=== PATIENT | female | born 1945 | race Caucasian/White ===

== ENCOUNTER 2017-01-11 05:47 | Inpatient (IN) | payer OTHER ==
[2017-01-07 17:23] VITALS: BMI 38.0
[2017-01-11] VITALS (35 sets, daily range): BP systolic 105–172; BP diastolic 55–89; PULSE 52–102; RESP 17–42; Ht 160 cm; Wt 97.0 kg
[~2017-01-11] VITALS: Ht 160 cm; Wt 97.0 kg
[~2017-01-11 05:47] MED LIST: ATEN50TA; ATOR20TA17; COLE625T2; DIAZ10TA4; DULO60CA6; ESOM40CA; HYDR-2059; HYDR4TAB; LAS20; LIDOCAINE; PANT40TA3; SUCR1TAB; SYN2; TIZA4TAB; [UNRECOGNIZED DRUG - OTHER]
[2017-01-11] MEDS ORDERED: THROMBIN 5000 UNIT VIAL ONE (06:37)
[2017-01-11] MEDS ORDERED: METHYLENE BLUE 1% 10 ML INJ ONE (06:38)
[2017-01-11] MEDS ORDERED: VASOPRESSIN 20 UNITS INJ ONE (06:38)
[2017-01-11] MEDS ORDERED: metroNIDAZOLE 500 MG/NS (PMX) 100 ML IVPB ONE (07:00)
[2017-01-11] MEDS ORDERED: CEFAZOLIN 1 GM INJ ONE (07:00)
[2017-01-11] MEDS ORDERED: D5-NS + KCL 20 MEQ 1,000 ML IV SCH (07:00)
[2017-01-11] MEDS ORDERED: ONDANSETRON 4 MG INJ ONE (07:12)
[2017-01-11] MEDS ORDERED: SUCCINYLCHOLINE CHLORIDE 100 MG/5 ML SYG IV ONE (07:12)
[2017-01-11] MEDS ORDERED: ROCURONIUM 50 MG INJ ONE (07:12)
[2017-01-11] MEDS ORDERED: FENTAnyl 50 MCG/ML VIAL ONE (07:12)
[2017-01-11] MEDS ORDERED: PROPOFOL 20 ML ONE (07:12)
[2017-01-11] MEDS ORDERED: METOCLOPRAMIDE 10 MG INJ ONE (07:13)
[2017-01-11] MEDS ORDERED: METO2.5T12 PO (07:49)
[2017-01-11] MEDS ORDERED: FAMO40TA52 PO (07:49)
--- NOTE | 2017-01-11 08:02 | HP ---
Date/Time of Note Date/Time of Note DATE: 01/11/17 TIME: 08:01 Assessment/Plan VTE Prophylaxis VTE Prophylaxis Intervention: SCD's HPI/ROS Admit Date/Time Admit Date/Time January 11, 2017 at 05:47 Hx of Present Illness Socrates Romo M.D. [facility] History and Physical Examination Loni Cristobal Date:January 07, 2017 :1945 Age: 71 Physicians: Machine [employer] Account Service Associate Oncologist Referring MD: Carley Hampton History of the Present Illness: A 71 year old female with a gradually increasing pelvic masses. The masses is complex and 7 cm and 10 cm and associated with pain. CA-125 is 11. Medical history/ROS: all other systems unremarkable. Surgical history: GB, CODI/?BSO, Appy, bladder Medications: Flu yes, 2016, Pneumococcal yes, 2016 Allergies: 12/23/16 Iodine 12/23/16 Penicillins Family Hx: non-contributary Social HX: non-contributary ROS: as above Colonoscopy: yes, 2010 Physical Examination Vitals (12/23/2016): Weight 220, Height 63, BP 140/80, BMI 39.0. General: Alert. HEENT: Pupils are equal, round, reactive to light and accommodation. Neck: Supple with no masses of lymphadenopathy. Breast: Deferred due to recent examination and responsibility of primary care physician. Chest: Clear to auscultation Heart: Normal rhythm with no murmur. Abdomen: Mildly tender with lower abd fullness, no ascites nor organomeglay. Pelvic exam: cul-de-sac cyst, no cul-de-sac nodularity noted Rectal: confirmatory with pelvic exam Ext Bilaterat edema (doppler neg0. Neurological: Grossly intact Assessment: Pelvic-abdominal mass Plan: laparoscopy,, possible BSO, possible removal of mesenteric cyst, possible open. All risks and benefits of this procedure have been discussed in detail with the patient, as well as alternative treatment strategies and their implications. The patient is aware that there is some possibility of a blood transfusion and its associated risks and benefits. She wishes to proceed and gives her informed consent. Socrates Romo M.D. PMH/Family/Social Social History Smoking Status: Never smoker Exam/Review of Systems Vital Signs Vitals Vital Signs Date Time Temp Pulse Resp B/P Pulse Ox O2 Delivery O2 Flow Rate FiO2 01/11/17 07:21 98.9 78 22 149/88 96 Room Air Medications Medications Current Medications Potassium Chloride/Dextrose/ Sod Cl (D5-NS + KCl 20 Meq) 1,000 ml @ 100 mls/hr Q10H IV ; Start 01/11/17 at 07:00 SOCRATES ROMO MD January 11, 2017 08:02
--- NOTE | 2017-01-11 08:02 | HPN ---
Date/Time of Note Date/Time of Note DATE: 01/11/17 TIME: 08:02 Interval H&P Admission Note Pt. seen H&P reviewed: No system changes MORIAH ROMO MD January 11, 2017 08:02
[2017-01-11] MEDS ORDERED: hydrALAzine 20 MG INJ IV PRN (09:00)
[2017-01-11] MEDS ORDERED: MEPERIDINE 25 MG INJ IV PRN (09:00)
[2017-01-11] MEDS ORDERED: FENTAnyl 50 MCG/ML VIAL IV PRN ×2 (09:00)
[2017-01-11] MEDS ORDERED: ONDANSETRON 4 MG INJ IV PRN (09:00)
[2017-01-11] MEDS ORDERED: LABETALOL HCL 20MG INJ IV PRN (09:00)
[2017-01-11] MEDS ORDERED: HYDROmorphONE (0.2 MG/ML) 10ML SYG IV PRN ×3 (09:00)
[2017-01-11] MEDS ORDERED: NEOSTIGMINE 3 MG/3 ML SYRINGE ONE (11:04)
[2017-01-11] MEDS ORDERED: ATROPINE 1 MG/10 ML SYRINGE ONE (11:04)
[2017-01-11] MEDS ORDERED: NEOMYC/POLYMYX/BACIT 30 GM OINT ONE (11:29)
[2017-01-11] MEDS ORDERED: HYDROCODONE/APAP (5/325) TAB PO PRN (12:00)
[2017-01-11] MEDS ORDERED: CEFAZOLIN 1 GM in SOD CHLORIDE 0.9% 100 ML IVPB SCH (12:00)
[2017-01-11 12:10] LABS: ADD SCAN DIFF NO
[2017-01-11 12:13] LABS: BASOPHILS % 0.5 % (0.0-2.0); EOSINOPHILS # 0.2 10^3/ul (0.0-0.5); EOSINOPHILS % 2.3 % (0.0-7.0); HEMATOCRIT 46.5 % (37.0-47.0); HEMOGLOBIN 15.5 g/dl (12.0-16.0); LYMPHOCYTES # 2.4 10^3/ul (0.8-2.9); LYMPHOCYTES % 31.4 % (15.0-51.0); MEAN CORPUSCULAR HEMOGLOBIN 30.3 pg (29.0-33.0); MEAN CORPUSCULAR HGB CONC 33.3 g/dl (32.0-37.0); MEAN CORPUSCULAR VOLUME 90.8 fl (82.0-101.0); MEAN PLATELET VOLUME 9.8 fl (7.4-10.4); MONOCYTE # 0.7 10^3/ul (0.3-0.9); MONOCYTES % 8.9 % (0.0-11.0); NEUTROPHIL # 4.3 10^3/ul (1.6-7.5); NEUTROPHILS % 56.6 % (39.0-77.0); PLATELET COUNT 139 10^3/UL (140-415); RED BLOOD COUNT 5.12 10^6/ul (4.20-5.40); RED CELL DISTRIBUTION WIDTH 12.9 % (11.5-14.5); WHITE BLOOD COUNT 7.6 10^3/ul (4.8-10.8)
[2017-01-11] MEDS: CEFAZOLIN 1 GM/50 ML (PMX) 50 ML IVPB SCH ×2 (12:30→20:55)
[2017-01-11 12:35] LABS: ALBUMIN 3.8 g/dl (3.3-4.9); ALBUMIN/GLOBULIN RATIO 1.11; BILIRUBIN,INDIRECT 0.4 mg/dl (0-1.1); BILIRUBIN,TOTAL 0.4 mg/dl (0.2-1.3); TOTAL PROTEIN 7.2 g/dl (6.1-8.1)
[2017-01-11 12:36] LABS: CALCIUM 9.3 mg/dl (8.4-10.2); CREATININE 0.59 mg/dl (0.44-1.00); POTASSIUM 3.9 mmol/L (3.5-5.1)
[2017-01-11] MEDS: POTASSIUM CHLORIDE 20 MEQ in LACTATED RINGER'S 990 ML IV SCH (14:45)
[2017-01-11] MEDS: HYDROmorphONE 1 MG/ML SYG IV PRN (18:27)
[2017-01-11] MEDS: FAMOTIDINE 20 MG INJ IV SCH (22:19)
[2017-01-11] MEDS: KETOROLAC 15 MG INJ IV PRN (22:27)
[2017-01-12 00:34] VITALS: BP 133/71; RESP 18
[2017-01-12] MEDS: HYDROmorphONE 1 MG/ML SYG IV PRN ×3 (00:41→18:15)
[2017-01-12] MEDS: POTASSIUM CHLORIDE 20 MEQ in LACTATED RINGER'S 990 ML IV SCH ×3 (00:41→20:40)
[2017-01-12] MEDS: CEFAZOLIN 1 GM/50 ML (PMX) 50 ML IVPB SCH (04:15)
[2017-01-12 04:21] VITALS: BP 139/64; PULSE 84; RESP 16
[2017-01-12 04:57] LABS: ADD SCAN DIFF NO
[2017-01-12 05:05] LABS: BASOPHILS % 0.5 % (0.0-2.0); EOSINOPHILS # 0.1 10^3/ul (0.0-0.5); EOSINOPHILS % 1.6 % (0.0-7.0); HEMATOCRIT 40.8 % (37.0-47.0); HEMOGLOBIN 13.3 g/dl (12.0-16.0); LYMPHOCYTES # 2.7 10^3/ul (0.8-2.9); LYMPHOCYTES % 31.4 % (15.0-51.0); MEAN CORPUSCULAR HEMOGLOBIN 30.2 pg (29.0-33.0); MEAN CORPUSCULAR HGB CONC 32.6 g/dl (32.0-37.0); MEAN CORPUSCULAR VOLUME 92.5 fl (82.0-101.0); MEAN PLATELET VOLUME 10.3 fl (7.4-10.4); MONOCYTE # 1.1 10^3/ul (0.3-0.9); NEUTROPHIL # 4.5 10^3/ul (1.6-7.5); NEUTROPHILS % 53.3 % (39.0-77.0); PLATELET COUNT 147 10^3/UL (140-415); RED BLOOD COUNT 4.41 10^6/ul (4.20-5.40); RED CELL DISTRIBUTION WIDTH 13.3 % (11.5-14.5); WHITE BLOOD COUNT 8.5 10^3/ul (4.8-10.8)
[2017-01-12 05:38] LABS: INR 1.02; PROTIME 13.4 Sec (12.2-14.2)
[2017-01-12 05:52] LABS: ALBUMIN 3.7 g/dl (3.3-4.9)
[2017-01-12 05:53] LABS: POTASSIUM 4.1 mmol/L (3.5-5.1)
[2017-01-12 05:55] LABS: ALBUMIN/GLOBULIN RATIO 1.54; BILIRUBIN,INDIRECT 0.5 mg/dl (0-1.1); BILIRUBIN,TOTAL 0.5 mg/dl (0.2-1.3); CREATININE 0.75 mg/dl (0.44-1.00); TOTAL PROTEIN 6.1 g/dl (6.1-8.1)
[2017-01-12 05:56] LABS: CALCIUM 8.8 mg/dl (8.4-10.2); MAGNESIUM 1.8 mg/dl (1.7-2.5)
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
[2017-01-12 08:00] VITALS: BP 183/78; RESP 18
[2017-01-12] MEDS: DULOXETINE 30 MG CAP DR PO SCH (08:30)
[2017-01-12] MEDS: ATENOLOL 50 MG TAB PO SCH (08:31)
[2017-01-12] MEDS: FAMOTIDINE 20 MG INJ IV SCH ×2 (08:31→20:38)
[2017-01-12] MEDS: ATORVASTATIN 20 MG TAB PO SCH (08:31)
[2017-01-12] MEDS ORDERED: METOLAZONE 2.5 MG TAB PO SCH (09:00)
[2017-01-12] MEDS ORDERED: PANTOPRAZOLE (EC) 40 MG TAB PO SCH (09:00)
[2017-01-12] MEDS: LEVOTHYROXINE 100 MCG TAB PO SCH (09:14)
[2017-01-12 10:00] VITALS: BP 146/67
--- NOTE | 2017-01-12 17:23 | PN ---
Date/Time of Note Date/Time of Note DATE: 01/12/17 TIME: 17:17 Assessment/Plan VTE Prophylaxis VTE Prophylaxis Intervention: SCD's Lines/Catheters IV Catheter Type (from Nrs): Peripheral IV Urinary Cath still in place: No Assessment/Plan Chief Complaint/Hosp Course Patient's complains of postoperative pain, denies nausea vomiting, tolerates diet well. Assessment and plan: - Pelvic mass, status post laparoscopic bilateral salpingo-oophorectomy. Continue [place] and Dilaudid for pain. Follow-up surgical recommendation. - Hypothyroidism. Continue Synthroid. - Hypertension. Continue atenolol. - Depression. Continue Cymbalta. - Chronic pain syndrome. With history of spinal cord stimulator and morphine pump. - Obesity with BMI 37.9 - Status post cholecystectomy Patient's condition and plan of care discussed with patient and patient's at the bedside. Further recommendations based on clinical course. Plan of care discussed with Dr. Grimm. Problems: Exam/Review of Systems Vital Signs Vitals Vital Signs Date Time Temp Pulse Resp B/P Pulse Ox O2 Delivery O2 Flow Rate FiO2 01/12/17 10:00 146/67 01/12/17 08:00 Nasal Cannula 3.0 01/12/17 08:00 99.7 95 18 94 Intake and Output 01/11/17 01/11/17 01/12/17 15:00 23:00 07:00 Intake Total 1000 ml 550 ml 1200 ml Output Total 430 ml 700 ml Balance 570 ml 550 ml 500 ml Exam Constitutional: alert Psych: no complaints Head: normocephalic Respiratory: clear to auscultation Cardiovascular: nl pulses Gastrointestinal: non-tender, soft Genitourinary - Female: other (Status post surgery) Extremities: normal pulses Results Result Diagram: 01/12/17 0425 01/12/17 0412 Results 24 hrs Laboratory Tests Test 01/12/17 04:12 01/12/17 04:25 01/12/17 10:19 Sodium Level 141 Potassium Level 4.1 Chloride Level 106 Carbon Dioxide Level 34 H Anion Gap 5 L Blood Urea Nitrogen 7 Creatinine 0.75 Glucose Level 107 # Calcium Level 8.8 Magnesium Level 1.8 Total Bilirubin 0.5 Direct Bilirubin 0.00 Indirect Bilirubin 0.5 Aspartate Amino Transf (AST/SGOT) 36 Alanine Aminotransferase (ALT/SGPT) 44 Alkaline Phosphatase 89 Total Protein 6.1 # Albumin 3.7 Globulin 2.40 Albumin/Globulin Ratio 1.54 White Blood Count 8.5 Red Blood Count 4.41 Hemoglobin 13.3 Hematocrit 40.8 Mean Corpuscular Volume 92.5 Mean Corpuscular Hemoglobin 30.2 Mean Corpuscular Hemoglobin Concent 32.6 Red Cell Distribution Width 13.3 Platelet Count 147 Mean Platelet Volume 10.3 Neutrophils % 53.3 Lymphocytes % 31.4 Monocytes % 13.0 H Eosinophils % 1.6 Basophils % 0.5 Nucleated Red Blood Cells % 0.0 Neutrophils # 4.5 Lymphocytes # 2.7 Monocytes # 1.1 H Eosinophils # 0.1 Basophils # 0.0 Nucleated Red Blood Cells # 0.0 Prothrombin Time 13.4 Prothrombin Time Ratio 1.0 INR International Normalized Ratio 1.02 Bedside Glucose 190 Medications Medications Current Medications Hydromorphone HCl (Dilaudid) 0.5 mg Q6H PRN IV PAIN LEVEL 6-10 Last administered on 01/12/17 08:32; Admin Dose 0.5 MG; Start 01/11/17 at 12:00 Acetaminophen/ Hydrocodone Bitart ([place] (5/325)) 1 tab Q6H PRN PO PAIN LEVEL 6 -10 Last administered on 01/12/17 10:20; Admin Dose 1 TAB; Start 01/11/17 at 12 :00 Ketorolac Tromethamine (Toradol) 15 mg Q6H PRN IV PAIN Last administered on 22:27; Admin Dose 15 MG; Start 01/11/17 at 12:00; Stop 01/14/17 at 11:59 Famotidine 20 mg 20 mg Q12 IV Last administered on 01/12/17 08:31; Admin Dose 20 MG; Start 01/11/17 at 21:00 Potassium Chloride/Lactated Ringer's (KCl/Lr) 1,000 ml @ 100 mls/hr Q10H IV Last administered on 01/12/17 12:18; Admin Dose 100 MLS/HR; Start 01/11/17 at 13:30 Atenolol (Tenormin) 50 mg QAM PO Last administered on 01/12/17 08:31; Admin Dose 50 MG; Start 01/12/17 at 09:00 Atorvastatin Calcium (Lipitor) 20 mg QAM PO Last administered on 01/12/17 08: 31; Admin Dose 20 MG; Start 01/12/17 at 09:00 Duloxetine HCl (Cymbalta) 60 mg QAM PO Last administered on 01/12/17 08:30; Admin Dose 60 MG; Start 01/12/17 at 09:00 Levothyroxine Sodium (Synthroid) 200 mcg QAM PO Last administered on 01/12/17 09:14; Admin Dose 200 MCG; Start 01/12/17 at 09:00 BOBO WESLEY January 12, 2017 17:23
[2017-01-12] MEDS: KETOROLAC 15 MG INJ IV PRN (19:43)
[2017-01-12 20:20] VITALS: BP 136/63; PULSE 77
[2017-01-12 20:38] VITALS: BP 171/76; RESP 20
[2017-01-12] MEDS ORDERED: HYDROmorphONE 1 MG/ML SYG IV PRN (21:00)
--- NOTE | 2017-01-12 22:07 | OPR ---
Date/Time of Note Date/Time of Note DATE: 01/12/17 TIME: 22:06 Operative Report Free Text/Dictation 3 OPERATIVE REPORT [facility] Date: 01/11/17 Preoperative Diagnosis: Bilateral adnexal masses Postoperative Diagnosis: Procedures: 1- Bilateral salpingoophorectomy 2- Bilateral ureteral dissection with repositioning Surgeon: Dr. Abreu Interventional Radiology Tech: KANDACE Marie Anesthesia: General Indications for Procedure: The patient is an 71- year old female with a 7-10 cm multi-cystic right and left adnexal masses and pain with tumor markers slightly of concern for possible ovarian cancer. After all options were presented with risks and benefits she agreed to a laparoscopy with a bilateral salpingoophorectomy and ureteral dissection with repositioning and staging if needed. Findings and Summary After laparoscopic placement extensive enterolysis was required and a right adnexal cyst and left adnexal vs retroperitoneal cyst was noted requiring additional enterolysis. Due to adherence of both masses to the sidewalls bilateral and the left side being retroperitoneal, a retroperitoneal exploration and ureteral dissection with repositioning was needed, after which the masses were removed and confirmed to be benign. The laparoscopic RSO was completed without incident and probable LSO or removal of retroperitoneal left cyst or ovarian remnant removed as well. Procedure: [facility] After being prepped and draped in the usual manner an EEA sizer and pneumo- occluder was inserted vaginally. Subsequently, we placed a 5 mm trocar cephlad to the umbilicus due to the size of the masses and incision without incident and insufflated to 15 mm Hg, after which we and placed two 5 millimeter trocars laterally and considerable omental adhesions were lysed without incident with sharp dissection and the [place] or Omni after which the 12 millimeter trocar placed suprapubically. At this time any pelvic adhesions were lysed with sharp dissection. Subsequently we explored and noted extensive pelvic and omental adhesions requiring enterolysis with sharp dissection required and Omni and a right adnexal cyst and left adnexal vs retroperitoneal cyst was noted requiring additional enterolysis., both densely adherent to the sidewalls , obscuring the retroperitoneal anatomy precluding access to the ureters to visualize. Hence, on the right side of the pathology, the apparent remnant of round ligament was transected with a Gyrus bipolar cutting forceps and the retroperitoneum opened parallel to the infundibulo-pelvic (IP) ligament with the Gyrus bipolar cutting forceps and Omni. The ureter was identified, and noted to be densely adherent to the pathology and significantly distorted anatomically, hence requiring a ureteral dissection/repositioning as a separate procedure. The ureter was dissected away and repositioned with great care using the endo-dissector, with both the Omni and the Gyrus bipolar cutting forceps, after which the ureter was repositioned laterally. This process was carried out throughout the ureteral length in the pelvis and it peristalsed normally subsequently to being repositioned. At this time the mass was dissected from the adjacent colonic mesentery and the IP ligament was better isolated. Subsequently, the IP ligament was cauterized and transected with a Gyrus bipolar cutting forceps. The adnexia with adherent peritoneum was mobilized with a Omni while visualizing the ureter. The adnexia required considerable mobilization from the colon and colonic mesentery with sharp dissection and the Omni for tissue not adjacent to the serosa. Subsequently the right adnexia with large mass was dissected from the bladder with the Omni and the andexia was fully by Name: [facility] transaction of residual triple pedicel the Omni and Gyrus bipolar cutting forceps . The adnexia was sent to pathology and confirmed to be and benign. Subsequently, the contralateral adnexia was addressed in the same manner. The remnant of round ligament was cauterized and transected with a Gyrus bipolar cutting forceps and the retroperitoneum opened parallel to the mass and sigmoid colon to note a remnant of infundibulo-pelvic (IP) ligament with the Gyrus bipolar cutting forceps as done on the other side. The ureter was identified, and noted to be also be adherent to the broad ligament and mass requiring a ureteral dissection/repositioning as a separate procedure. The ureter was dissected away and repositioned with care using the endo-dissector, with both the Omni and the endo-dissector bluntly, after which the ureter was repositioned laterally. The Omni and the Gyrus bipolar cutting forceps were used to address any small bleeding areas with the ureter visualized. This process was carried out throughout the ureteral length in the pelvis and it peristalsed normally once repositioned. Subsequently, the IP ligament was transected with a Gyrus bipolar cutting forceps with the ureter visualized. The adnexia with adherent peritoneum was mobilized with a Omni while visualizing the ureter. Hence the aforementioned cystic mass was mobilized from the retroperitoneum and adjacent sigmoid colon as well mesentery and cul -de-sac with sharp dissection and the Omni and removed en-bloc with adjacent oozing addressed with the argon adamson floorleader at low wattage. The mas was sent to pathology and confirmed to be benign. After irrigating and assuring hemostasis the 12 millimeter trocar was removed and the fascia was closed with 0 -vicryl using an endo-close devise. The gas was removed and the skin of all sites then closed with 5-0 Monocryl suture. The EBL was 100cc and the patient tolerated the procedure well and left the OR in good condition. Moriah Abreu M.D. MORIAH ABREU MD January 12, 2017 22:07
--- NOTE | 2017-01-12 22:11 | PN ---
Date/Time of Note Date/Time of Note DATE: 01/12/17 TIME: 22:07 Assessment/Plan VTE Prophylaxis VTE Prophylaxis Intervention: SCD's Lines/Catheters IV Catheter Type (from Nrsg): Saline Lock Urinary Cath still in place: No Assessment/Plan Chief Complaint/Hosp Course pelvic mass x 2, pain Problems: Assessment/Plan A- doing well but chronic pain P- adv diet, discuss with IM Subjective 24 Hr Interval Summary Free Text/Dictation Ongoing general pain and rt pain, but nisreen liq and + flatus. Exam/Review of Systems Vital Signs Vitals Vital Signs Date Time Temp Pulse Resp B/P Pulse Ox O2 Delivery O2 Flow Rate FiO2 01/12/17 21:00 Nasal Cannula 2.0 01/12/17 20:38 98.9 82 20 171/76 94 Intake and Output 01/11/17 01/11/17 01/12/17 15:00 23:00 07:00 Intake Total 1000 ml 550 ml 1200 ml Output Total 430 ml 700 ml Balance 570 ml 550 ml 500 ml Exam Resp-clear but on O2 CVS- NSR Abd-NT clean and soft Ext- nt baseline edema Results Result Diagram: 01/12/17 0425 01/12/17 0412 Results 24 hrs Laboratory Tests Test 01/12/17 04:12 01/12/17 04:25 01/12/17 10:19 Sodium Level 141 Potassium Level 4.1 Chloride Level 106 Carbon Dioxide Level 34 H Anion Gap 5 L Blood Urea Nitrogen 7 Creatinine 0.75 Glucose Level 107 # Calcium Level 8.8 Magnesium Level 1.8 Total Bilirubin 0.5 Direct Bilirubin 0.00 Indirect Bilirubin 0.5 Aspartate Amino Transf (AST/SGOT) 36 Alanine Aminotransferase (ALT/SGPT) 44 Alkaline Phosphatase 89 Total Protein 6.1 # Albumin 3.7 Globulin 2.40 Albumin/Globulin Ratio 1.54 White Blood Count 8.5 Red Blood Count 4.41 Hemoglobin 13.3 Hematocrit 40.8 Mean Corpuscular Volume 92.5 Mean Corpuscular Hemoglobin 30.2 Mean Corpuscular Hemoglobin Concent 32.6 Red Cell Distribution Width 13.3 Platelet Count 147 Mean Platelet Volume 10.3 Neutrophils % 53.3 Lymphocytes % 31.4 Monocytes % 13.0 H Eosinophils % 1.6 Basophils % 0.5 Nucleated Red Blood Cells % 0.0 Neutrophils # 4.5 Lymphocytes # 2.7 Monocytes # 1.1 H Eosinophils # 0.1 Basophils # 0.0 Nucleated Red Blood Cells # 0.0 Prothrombin Time 13.4 Prothrombin Time Ratio 1.0 INR International Normalized Ratio 1.02 Bedside Glucose 190 Medications Medications Current Medications Ketorolac Tromethamine (Toradol) 15 mg Q6H PRN IV PAIN Last administered on 19:43; Admin Dose 15 MG; Start 01/11/17 at 12:00; Stop 01/14/17 at 11:59 Famotidine 20 mg 20 mg Q12 IV Last administered on 01/12/17 20:38; Admin Dose 20 MG; Start 01/11/17 at 21:00 Potassium Chloride/Lactated Ringer's (KCl/Lr) 1,000 ml @ 70 mls/hr [id number] IV Last administered on 01/12/17 20:40; Admin Dose 70 MLS/HR; Start 01/11/17 at 13 :30 Atenolol (Tenormin) 50 mg QAM PO Last administered on 01/12/17 08:31; Admin Dose 50 MG; Start 01/12/17 at 09:00 Atorvastatin Calcium (Lipitor) 20 mg QAM PO Last administered on 01/12/17 08: 31; Admin Dose 20 MG; Start 01/12/17 at 09:00 Duloxetine HCl (Cymbalta) 60 mg QAM PO Last administered on 01/12/17 08:30; Admin Dose 60 MG; Start 01/12/17 at 09:00 Levothyroxine Sodium (Synthroid) 200 mcg QAM PO Last administered on 01/12/17 09:14; Admin Dose 200 MCG; Start 01/12/17 at 09:00 Acetaminophen/ Hydrocodone Bitart ([place] (5/325)) 1 tab Q4HWA PRN PO PAIN LEVEL 6-10; Start 01/12/17 at 21:00 Hydromorphone HCl (Dilaudid) 0.5 mg Q3H PRN IV PAIN LEVEL 6-10; Start 01/12/17 at 21:00 MORIAH ROMO MD January 12, 2017 22:11
[2017-01-13 05:05] LABS: ADD SCAN DIFF NO
[2017-01-13] MEDS: KETOROLAC 15 MG INJ IV PRN ×3 (05:05→18:47)
[2017-01-13 05:15] LABS: BASOPHILS % 0.4 % (0.0-2.0); EOSINOPHILS # 0.2 10^3/ul (0.0-0.5); EOSINOPHILS % 3.4 % (0.0-7.0); HEMATOCRIT 38.7 % (37.0-47.0); HEMOGLOBIN 12.8 g/dl (12.0-16.0); LYMPHOCYTES # 2.1 10^3/ul (0.8-2.9); LYMPHOCYTES % 30.1 % (15.0-51.0); MEAN CORPUSCULAR HEMOGLOBIN 30.1 pg (29.0-33.0); MEAN CORPUSCULAR HGB CONC 33.1 g/dl (32.0-37.0); MEAN CORPUSCULAR VOLUME 91.1 fl (82.0-101.0); MEAN PLATELET VOLUME 10.4 fl (7.4-10.4); MONOCYTE # 0.8 10^3/ul (0.3-0.9); MONOCYTES % 11.7 % (0.0-11.0); NEUTROPHIL # 3.8 10^3/ul (1.6-7.5); NEUTROPHILS % 54.1 % (39.0-77.0); PLATELET COUNT 119 10^3/UL (140-415); RED BLOOD COUNT 4.25 10^6/ul (4.20-5.40); RED CELL DISTRIBUTION WIDTH 12.8 % (11.5-14.5); WHITE BLOOD COUNT 7.1 10^3/ul (4.8-10.8)
[2017-01-13 07:35] VITALS: BP 127/58; RESP 18
[2017-01-13 07:39] LABS: PLATELET ESTIMATE PLT APPEAR DECREASED
[2017-01-13] MEDS: ATENOLOL 50 MG TAB PO SCH (10:43)
[2017-01-13] MEDS: ATORVASTATIN 20 MG TAB PO SCH (10:43)
[2017-01-13] MEDS: DULOXETINE 30 MG CAP DR PO SCH (10:44)
[2017-01-13] MEDS: FAMOTIDINE 20 MG INJ IV SCH (10:44)
[2017-01-13 10:45] LABS: CREATININE 0.55 mg/dl (0.44-1.00); POTASSIUM 4.4 mmol/L (3.5-5.1)
[2017-01-13] MEDS: LEVOTHYROXINE 100 MCG TAB PO SCH (10:46)
[2017-01-13] MEDS: POTASSIUM CHLORIDE 20 MEQ in LACTATED RINGER'S 990 ML IV SCH (10:46)
[2017-01-13] MEDS: HYDROCODONE/APAP (5/325) TAB PO PRN ×2 (12:00→15:56)
--- NOTE | 2017-01-13 16:46 | PN ---
Date/Time of Note Date/Time of Note DATE: 01/13/17 TIME: 16:46 Assessment/Plan VTE Prophylaxis VTE Prophylaxis Intervention: other Lines/Catheters IV Catheter Type (from Nrs): Peripheral IV Urinary Cath still in place: No Assessment/Plan Assessment/Plan - Pelvic mass, status post laparoscopic bilateral salpingo-oophorectomy. Continue [place] and Dilaudid for pain. Follow-up surgical recommendation. - Hypothyroidism. Continue Synthroid. - Hypertension. Continue atenolol. - Depression. Continue Cymbalta. - Chronic pain syndrome. With history of spinal cord stimulator and morphine pump. - Obesity with BMI 37.9 - Status post cholecystectomy Patient's condition and plan of care discussed with patient and patient's at the bedside. Further recommendations based on clinical course. Plan of care discussed with Dr. Grimm. Exam/Review of Systems Vital Signs Vitals Vital Signs Date Time Temp Pulse Resp B/P Pulse Ox O2 Delivery O2 Flow Rate FiO2 01/13/17 08:00 Nasal Cannula 2.0 01/13/17 07:35 98.2 86 18 127/58 94 Intake and Output 01/12/17 01/12/17 01/13/17 15:00 23:00 07:00 Intake Total 600 ml 1770 ml 1270 ml Output Total 1000 ml 1350 ml Balance 600 ml 770 ml -80 ml Exam Constitutional: alert, obese, oriented, well developed ENMT: nl external ears & nose Neck: non-tender Respiratory: clear to auscultation, normal air movement Cardiovascular: nl pulses, regular rate and rhythm Gastrointestinal: non-tender, soft Neurological: nl mental status, nl speech Lymph: other Results Result Diagram: 01/13/17 0453 01/13/17 0940 Results 24 hrs Laboratory Tests Test 01/13/17 04:53 01/13/17 09:40 White Blood Count 7.1 Red Blood Count 4.25 Hemoglobin 12.8 Hematocrit 38.7 Mean Corpuscular Volume 91.1 Mean Corpuscular Hemoglobin 30.1 Mean Corpuscular Hemoglobin Concent 33.1 Red Cell Distribution Width 12.8 Platelet Count 119 L Mean Platelet Volume 10.4 Neutrophils % 54.1 Lymphocytes % 30.1 Monocytes % 11.7 H Eosinophils % 3.4 Basophils % 0.4 Nucleated Red Blood Cells % 0.0 Neutrophils # 3.8 Lymphocytes # 2.1 Monocytes # 0.8 Eosinophils # 0.2 Basophils # 0.0 Nucleated Red Blood Cells # 0.0 Platelet Estimate PLT APPEAR DECREASED Sodium Level 140 Potassium Level 4.4 Chloride Level 107 Carbon Dioxide Level 33 H Anion Gap 4 L Blood Urea Nitrogen 6 L Creatinine 0.55 Glucose Level 130 Calcium Level 9.0 Medications Medications Current Medications Ketorolac Tromethamine (Toradol) 15 mg Q6H PRN IV PAIN Last administered on 01/13 05:05; Admin Dose 15 MG; Start 01/11/17 at 12:00; Stop 01/14/17 at 11:59 Famotidine 20 mg 20 mg Q12 IV Last administered on 01/13/17 10:44; Admin Dose 20 MG; Start 01/11/17 at 21:00 Potassium Chloride/Lactated Ringer's (KCl/Lr) 1,000 ml @ 70 mls/hr [id number] IV Last administered on 01/13/17 10:46; Admin Dose 70 MLS/HR; Start 01/11/17 at 13: 30 Atenolol (Tenormin) 50 mg QAM PO Last administered on 01/13/17 10:43; Admin Dose 50 MG; Start 01/12/17 at 09:00 Atorvastatin Calcium (Lipitor) 20 mg QAM PO Last administered on 01/13/17 10:43 ; Admin Dose 20 MG; Start 01/12/17 at 09:00 Duloxetine HCl (Cymbalta) 60 mg QAM PO Last administered on 01/13/17 10:44; Admin Dose 60 MG; Start 01/12/17 at 09:00 Levothyroxine Sodium (Synthroid) 200 mcg QAM PO Last administered on 01/13/17 10:46; Admin Dose 200 MCG; Start 01/12/17 at 09:00 Acetaminophen/ Hydrocodone Bitart ([place] (5/325)) 1 tab Q4HWA PRN PO PAIN LEVEL 6-10 Last administered on 01/13/17 15:56; Admin Dose 1 TAB; Start at 21:00 Hydromorphone HCl (Dilaudid) 0.5 mg Q3H PRN IV PAIN LEVEL 6-10 Last administered on 01/13/17 10:46; Admin Dose 0.5 MG; Start 01/12/17 at 21:00 MARIAM GAYTAN Jan 13, 2017 16:46
[2017-01-13] MEDS ORDERED: MORPHINE XX SCH (18:00)
--- NOTE | 2017-01-13 18:57 | PDOCDIS ---
Discharge Instructions CONDITION Patient Condition: Stable HOME CARE INSTRUCTIONS: Diet Instructions: Low Fat /CholesterolSpecial Diet: N/A ACTIVITY: Activity Restrictions: Slowly Increase Activity Rest between Activity Avoid heavy lifting No Sexual Activity Do not Drive Do not operate Machinery Do not operate Power Tool Avoid Heavy Housework Bathing Restrictions: MARIAM Parra Jan 13, 2017 18:57
== END 2017-01-13 19:30 | disposition home or self-care (01) | DRG 331 ==
LOC: REC 05:47 → MS1 11:12 → REC 12:11 → MS1 14:22
PROVIDERS: ATTEND Internal Medicine
PROC: 0DBN4ZZ Excision of Sigmoid Colon, Percutaneous Endoscopic Approach (ICD-10-PCS; 2017-01-11)
PROC: 0UT74ZZ Resection of Bilateral Fallopian Tubes, Percutaneous Endoscopic Approach (ICD-10-PCS; 2017-01-11)
PROC: 0TS84ZZ Reposition Bilateral Ureters, Percutaneous Endoscopic Approach (ICD-10-PCS; 2017-01-11)
PROC: 0UT24ZZ Resection of Bilateral Ovaries, Percutaneous Endoscopic Approach (ICD-10-PCS; 2017-01-11)
PROC: 0TBB4ZZ Excision of Bladder, Percutaneous Endoscopic Approach (ICD-10-PCS; principal; 2017-01-11 07:30)
DX: R19.09 Other intra-abdominal and pelvic swelling, mass and lump (principal); K75.81 Nonalcoholic steatohepatitis (NASH); E03.9 Hypothyroidism, unspecified; E78.5 Hyperlipidemia, unspecified; I10 Essential (primary) hypertension; F32.9 Major depressive disorder, single episode, unspecified; G89.4 Chronic pain syndrome; E66.9 Obesity, unspecified; Z68.37 Body mass index [BMI] 37.0-37.9, adult; R10.2 Pelvic and perineal pain; R60.1 Generalized edema; K66.0 Peritoneal adhesions (postprocedural) (postinfection); N13.5 Crossing vessel and stricture of ureter without hydronephrosis
CPT/HCPCS: 80048; 80053; 82962; 83735; 85025; 85610; 86850; 86900; 86901; 86920; 87086; J0360; J0461; J0690; J1170; J1885; J2405; J2710; J2765; J3010; J3480; J7120; J7999